=== PATIENT | male | born 1995 | race Asian ===

== ENCOUNTER 2019-01-05 15:12 | Emergency (ER) | payer OTHER ==
[~2019-01-05] VITALS: Ht 177.8 cm; Wt 73.5 kg
--- NOTE | 2019-01-05 15:23 | NUR ---
ED Nurse Note: ambulated in to ER due to laceration on left 3rd and 4th digit finger. Per pt, he got hurt from washing knife at work accidently.
[2019-01-05 15:25] VITALS: BP 117/75
[2019-01-05] MEDS ORDERED: Lidocaine 1% Plain 30 ml INJ ONE (15:45)
--- NOTE | 2019-01-05 16:43 | Emergency Room Report ---
History of Present Illness General Chief Complaint: Laceration Source: Patient Present Illness HPI 23-year-old male presents to the emergency department complaining of 6 out of 10 in severity pain, bleeding and open wounds to the right third and fourth digit status post accidental laceration sustained by knife at work. Patient describes he was cleaning his knife when he actually cut his hand. Patient reports he is right-hand dominant. He denies taking blood thinning medications he states he is not quite sure when his last tetanus vaccination was. Patient denies inability to move the affected extremity she denies paresthesias. She reports that with bending his hand it causes more bleeding. No other aggravating or relieving factors. Allergies: Coded Allergies: No Known Allergies (Unverified , 01/05/19) Patient History Past Medical History: see triage record Past Surgical History: none Pertinent Family History: none Reviewed Nursing Documentation: PMH: Agreed; PSxH: Agreed Nursing Documentation-PMH Past Medical History: No Stated History Review of Systems All Other Systems: negative except mentioned in HPI Physical Exam Vital Signs Date Time Temp Pulse Resp B/P (MAP) Pulse Ox O2 Delivery O2 Flow Rate FiO2 01/05/19 15:18 97.5 58 19 117/75 95 Room Air Sp02 EP Interpretation: reviewed, normal General Appearance: no apparent distress, alert, GCS 15, non-toxic Head: normocephalic, atraumatic Eyes: bilateral eye normal inspection, bilateral eye PERRL ENT: hearing grossly normal, normal voice Neck: full range of motion Respiratory: lungs clear, normal breath sounds, speaking full sentences Cardiovascular #1: regular rate, rhythm, normal capillary refill Musculoskeletal: back normal, gait/station normal, normal range of motion, non- tender Neurologic: alert, oriented x3, responsive, motor strength/tone normal, sensory intact, speech normal, grossly normal Psychiatric: judgement/insight normal Skin: normal color, no rash, warm/dry, well hydrated, laceration - Right middle finger flexor surface 2cm flap laceration, and right ring finger 0.4 cm superficial laceration.- Pt. able to flex affected fingers against resistance and has good strength. The tendon does not appear to be involved. Lymphatic: no adenopathy Procedures Laceration/Wound Repair Laceration/Wound Repair #1: Consent: Verbal Wound Location: other - Right middle finger Wound's Depth, Shape: flap Wound Length (cm): 2 Wound Explored: clean Irrigated w/ Saline (ccs): 500 Betadine Prep?: Yes Anesthesia: 1% Lidocaine Volume Anesthetic (ccs): 5 Wound Repaired With: sutures Suture Size/Type: 4:0, other - Ethilon Number of Sutures: 8 Layer Closure?: No Sterile Dressing Applied?: Yes Splint Applied?: Yes Type of Splint Applied: Finger splint Sling Applied?: No Patient Tolerated: Well Complications: None Laceration/Wound Repair #2: Consent: Verbal Wound Location: other - Right ring finger Wound's Depth, Shape: superficial, linear Wound Length (cm): 1 Wound Explored: clean Irrigated w/ Saline (ccs): 500 Betadine Prep?: Yes Wound Repaired With: Dermabond Layer Closure?: No Sterile Dressing Applied?: No Splint Applied?: No Sling Applied?: No Patient Tolerated: Well Complications: None Medical Decision Making PA Attestation Dr. Orosco is my supervising Physician whom patient management has been discussed with. Diagnostic Impression: Primary Impression: Laceration ER Course 23-year-old male presents to the emergency department complaining of 6 out of 10 in severity pain, bleeding and open wounds to the right third and fourth digit status post accidental laceration sustained by knife at work. Patient describes he was cleaning his knife when he actually cut his hand. Patient reports he is right-hand dominant. He denies taking blood thinning medications he states he is not quite sure when his last tetanus vaccination was. Patient denies inability to move the affected extremity she denies paresthesias. She reports that with bending his hand it causes more bleeding. No other aggravating or relieving factors. Ddx considered but are not limited to laceration, tendon injury, cellulitis, amputation Vital signs: are WNL, pt. is afebrile H&PE are most consistent with: Right middle finger flexor surface 2cm flap laceration, and right ring finger 0.4 cm superficial laceration.- Pt. able to flex affected fingers against resistance and has good strength. The tendon does not appear to be involved. ORDERS: none required at this time, the diagnosis is clinical ED INTERVENTIONS: -Tetanus vaccine was administered as pt. vaccination status was unknown. - The wound was copiously irrigated with normal saline, and explored for foreign body for which no FB was found. - pt. is anesthetized with 1%lidocaine -- Tendon sheath block - The wound was approximated and closed using 8 interrupted 8 Ethilon sutures. -Bacitracin and sterile dressing is applied. Discussed with patient: That we make every effort to approximate the laceration as best as we can so that scarring will be as cosmetically pleasing as possible with our limited cosmetic skill set in the Emergency dept. Regardless of our best efforts there will be scarring after laceration repair. The extent of scarring is unknown at this time. DISCHARGE: At this time pt. is stable for d/c to home. Will provide printed patient care instructions, and any necessary prescriptions. Care plan and follow up instructions have been discussed with the patient prior to discharge. Last Vital Signs Date Time Temp Pulse Resp B/P (MAP) Pulse Ox O2 Delivery O2 Flow Rate FiO2 01/05/19 15:25 97.5 60 19 117/75 95 Room Air Disposition: HOME, SELF-CARE Condition: Stable Scripts Acetaminophen* (TYLENOL EXTRA STRENGTH*) 500 Mg Tablet 500 MG ORAL Q6H, #20 TAB 0 Refills Prov: Gaby Triplett 01/05/19 Cephalexin* (KEFLEX*) 500 Mg Capsule 500 MG ORAL EVERY 12 HOURS for 7 Days, #14 CAP 0 Refills Prov: Gaby Triplett 01/05/19 Bacitracin/Polymyxin B Sulfate (BACITRACIN-POLYMYXIN OINTMENT) 28.35 Gm Oint...g. 1 APPLIC TP BID, #28.3 GM Prov: Gaby Triplett 01/05/19 Referrals: NOT CHOSEN IPA/MD,REFERRING (PCP) Departure Forms: Return to Work Return to Work Date: Jan 08, 2019 Work Restrictions: No Heavy Lifting, No Prolonged Standing Other Restrictions: Keep hand Clean and Dry, Limited use of right hand Return to Full Activity: Jan 12, 2019 Patient Instructions: Laceration Care, Adult Additional Instructions: Take medications as directed. sutures to be removed in approximately 10 days Follow up with a Hand Specialist in 3-5 days, even if your symptoms have resolved. Dr. Zaragoza - Hand Specialist referral information is provided, he is familiar with your case as he was consulted. --Please review list of primary care clinics, if you do not already have a primary care provider Return sooner to ED if new symptoms occur, or current symptoms become worse. - Please note that this Emergency Department Report was dictated using [employer] technology software, occasionally this can lead to erroneous entry secondary to interpretation by the dictation equipment. Gaby Triplett Jan 05, 2019 16:43
[2019-01-05] MEDS ORDERED: TYLENOL EXTRA500 MG ORAL (16:44)
[2019-01-05] MEDS ORDERED: CEPHALEXIN500 MG ORAL (16:44)
[2019-01-05] MEDS ORDERED: BACITRACIN-P28.35 GM TP (16:44)
[2019-01-05 17:01] VITALS: BP 117/75
--- NOTE | 2019-01-05 17:02 | NUR ---
ED Nurse Note: Pt cleared DC by SANJIV Griffin. Pt is A/Ox4, VSS, DC instruction and prescriptions given, pt verbalized understanding. ID wristband removed. All belongings given to pt. Pt ambulated out of ER with steady gait. Finger splint and dry dressing applied on the finger.
== END 2019-01-05 17:15 | disposition home or self-care (01) ==
LOC: EEVIPCON 16:21 → EMR 16:21
DX: S61.212A Laceration without foreign body of right middle finger without damage to nail, initial encounter (principal); S61.214A Laceration without foreign body of right ring finger without damage to nail, initial encounter; W26.0XXA Contact with knife, initial encounter; Y92.511 Restaurant or cafe as the place of occurrence of the external cause; Y99.0 Civilian activity done for income or pay
CPT/HCPCS: 12002; 99283; J2001